=== PATIENT | female | born 1975 | race Caucasian/White ===

== ENCOUNTER → 2018-06-19 | Day surgery (SDC) | payer OTHER ==
[~2018-06-19] VITALS: Ht 170.2 cm; Wt 131.5 kg
--- NOTE | 2018-06-19 15:03 | Operative Report ---
Operative/Inv Procedure Report Surgery Date: 06/19/18 Name of Procedure: right ESWL Pre-Operative Diagnosis: right renal stone 5mm Post-Operative Diagnosis: same Estimated Blood Loss: mike Surgeon/Drycleaner: Clover Toro MD Anesthesia: local monitored anesthesi Complications: none Condition: stable Operative Indication: right renal stone Operative/Procedure Note Note: This is a 43yo morbidly obese female with a hx of kidney stones since 1996 s/p multiple ESWLs in the past and one URS with laser lithotripsy. She has a 5mm stone on the right side on her last CT scan in january 2018. She has been having flank pain and gross hematuria intermittently. Recommend she drink 2-3 liters of water a day. She is interested in ESWL but she is on plavix and was cleared by her vas surgeon. She was given the risks, benefits and alternatives of the surgery. All questions were answered. Consent was signed and patient was marked on the right hand. Patient was brought to the operating room and placed on the table in the supine position. Time out was performed. IV kefzol was infused. ESWL was started after IV sedation was given adequately and the 5mm stone was located in the upper midpole. The ESWL was started at a power of 10 for 100 shocks, then power of 11 for 100 shocks, then power of 12 for 100 shocks, then power of 13 for 100 shocks and finally power of 20 for 2100 shocks. Patient tolerated the procedure well. The stone had some minor changes after the ESWL was completed. Patient was transferred to [facility] in stable condition. Findings: 5mm stone minimally visibly changed after the ESWL Discharge Disposition: Same Day Admissions
== END ==
LOC: STS 02:19
DX: N20.0 Calculus of kidney (principal); Z87.442 Personal history of urinary calculi; N30.10 Interstitial cystitis (chronic) without hematuria; E66.01 Morbid (severe) obesity due to excess calories; F17.200 Nicotine dependence, unspecified, uncomplicated
CPT/HCPCS: J0690; J2250